=== PATIENT | male | born 1995 ===

== ENCOUNTER 2019-05-17 20:51 | Emergency (ER) | payer SELFPAY ==
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
[2019-05-17] MEDS ORDERED: KETOROLAC 30 MG/ML INJ ONE (21:47)
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
[2019-05-17 22:41] VITALS: BP 106/61; TEMP 98; O2SAT 99
--- NOTE | 2019-05-20 15:40 | EKG ---
Test Date: 2019-05-17 Test Time: 21:30:15 Director Of Knowledge Management: RV MEASUREMENT RESULTS: Intervals: Rate: 61 AK: 132 QRSD: 84 QT: 370 QTc: 372 Start: P: 12 AK: 132 QRS: 39 T: -1 INTERPRETIVE STATEMENTS: Normal sinus rhythm Normal ECG No previous ECG available for comparison Electronically Signed On 05-20-19 15:39:45 FREIGHT ADJUSTER by Samson Alanis
== END 2019-05-17 21:51 | disposition home or self-care (01) ==
LOC: ER 20:51
DX: F41.9 Anxiety disorder, unspecified (principal); F17.210 Nicotine dependence, cigarettes, uncomplicated
CPT/HCPCS: 93005; 99284